=== PATIENT | female | born 1960 | race Caucasian/White ===

== ENCOUNTER 2024-07-12 16:55 | Emergency (ER) | payer MEDICAID ==
[~2024-07-12] VITALS: Ht 160 cm; Wt 60.0 kg
[~2024-07-12 16:55] MED LIST: ALBU18 IN; LEVO500T91 PO; LORANTIDINE; OXYC325T14 PO
[2024-07-12 17:16] VITALS: PULSE 72; RESP 16; O2SAT 99
[2024-07-12] MEDS: KETOROLAC TROMETH 60MG/2ML VIAL IM ONE ×2 (17:19→17:22)
[2024-07-12] MEDS: ONDANSETRON HCL 4 MG/2 ML VIAL IM ONE (17:22)
[2024-07-12 17:45] LABS: Basophils # (auto) 0.1 10 ^3/uL (0-0.2); Basophils % (auto) 1.2 % (0.0-2.0); Eosinophils # (auto) 0.2 10 ^3/uL (0-0.8); Eosinophils % (auto) 3.1 % (0.0-7.0); Hematocrit 47.7 % (36.0-46.0); Hemoglobin 16.5 g/dL (12.2-16.2); Lymphocytes # (auto) 2.3 10 ^3/uL (0.4-5.4); Lymphocytes % (auto) 36.4 % (10.0-50.0); Mean Corpuscular Hemoglobin 31.2 pg (28.0-32.0); Mean Corpuscular Hgb Conc. 34.7 g/dL (32.0-36.0); Mean Corpuscular Volume 90.1 fL (80.0-100.0); Monocytes # (auto) 0.5 10 ^3/uL (0-1.3); Monocytes % (auto) 7.5 % (0.0-12.0); Neutrophils # (auto) 3.3 10 ^3/uL (1.6-8.6); Neutrophils % (auto) 51.8 % (37.0-80.0); Nucleated Red Blood Cells % 0.3 %; Platelet Count (auto) 261 10^3/uL (140-450); Red Cell Distribution Width 13.7 % (11.8-14.3); White Blood Cell 6.3 10^3/uL (4.4-10.8)
[2024-07-12 18:12] LABS: Alanine Aminotransferase 18 U/L (7-40); Albumin 4.1 g/dL (3.2-4.8); Alkaline Phosphatase 121 U/L (46-116); Anion Gap 6 (5-15); Aspartate Aminotransferase 19 U/L (13-40); BUN/Creatinine Ratio 13.8 (10.0-20.0); Bilirubin, Total 0.6 mg/dL (0.2-1.0); Blood Urea Nitrogen 11 mg/dL (9-23); Calcium 10.3 mg/dL (8.7-10.4); Carbon Dioxide 24 mmol/L (20-30); Chloride 105 mmol/L (98-107); Glucose 107 mg/dL (74-106); Potassium 3.7 mmol/L (3.5-5.1); Sodium 135 mmol/L (136-145); Total Protein 6.7 g/dL (5.7-8.2)
[2024-07-12] MEDS ORDERED: NAP500T GT (18:28)
[2024-07-12] MEDS ORDERED: ZOFR4T PO (18:29)
[2024-07-12 18:36] VITALS: BP 147/92; PULSE 66; RESP 16; TEMP 97.6; O2SAT 97
[2024-07-12 18:53] LABS: Partial Thromboplastin Time 28.6 SEC (24.5-34.5); Prothrombin Time 10.6 sec (9.3-11.8)
== END 2024-07-12 18:38 | disposition home or self-care (01) ==
LOC: ER 16:55
DX: R07.89 Other chest pain (principal); F17.210 Nicotine dependence, cigarettes, uncomplicated; F12.10 Cannabis abuse, uncomplicated; E78.5 Hyperlipidemia, unspecified; I10 Essential (primary) hypertension; I25.2 Old myocardial infarction; Z90.710 Acquired absence of both cervix and uterus; Z88.2 Allergy status to sulfonamides; Z88.1 Allergy status to other antibiotic agents
CPT/HCPCS: 36415; 71045; 80053; 84484; 85025; 85610; 85730; 93005; 96372; 99285; J1885; J2405